=== PATIENT | female | born 1965 | race Caucasian/White ===

== ENCOUNTER → 2017-01-02 | Outpatient (CLI) | payer OTHER ==
[~2017-01-02] MED LIST: AMOX500C PO; AUGM875T27 PO; DOCU10CA PO; GLUC2.5T2 PO; GLYBURIDE METFORMIN PO; INSULANT SC; KEFL500C7 PO; LEVO25TA2 OR; LEVO25TA5 PO; LOPR50TA PO; MOTRIN PO; NOVOLOG100 MG/ML SC; PERC5TAB8 PO; PERCOCET PO; SENN8.6T5 PO; SERT25TA2 PO; VYTO10TA5 PO; kenalog EXT; levothyroxine PO
--- NOTE | 2017-01-02 18:57 | REP ---
MRI right shoulder without contrast: History: Right shoulder sprain in a fall a month ago. Increased pain and limited range of motion. Comparison radiographs of the humerus are from September 20, 2016. No other comparison images. Technique: Axial, oblique coronal and oblique sagittal imaging planes are utilized. T1 and T2-weighted scans were obtained in the usual fashion with without fat saturation. MRI findings: There is mild osteoarthritic hypertrophy of the acromioclavicular joint. The AC and glenohumeral joints are normally aligned. Cortical and medullary bone signal intensity are normal. There are some small subcortical cysts in the anterolateral aspect of the humeral head. This is a finding which may correlate with impingement. There is a moderate size subacromial subdeltoid bursal effusion visible on T2-weighted scans. There is heterogeneous increased signal intensity and some thickening in the distal supraspinatus tendon on oblique coronal T1-weighted images and oblique coronal T2-weighted images. A full-thickness partial tear is suspected in the distal supraspinatus at its insertion. No anterior or posterior labral tear is seen. The superior labrum appears intact. No glenohumeral effusion is seen. The infraspinatus, subscapularis tendons appear intact. The biceps tendon is in the bony bicipital groove and appears intact. Impression: Partial, full-thickness distal supraspinatus tear suspected. Subacromial subdeltoid bursal effusion. Tendonitis tendinosis change in the supraspinatus tendon. AC joint osteoarthritic hypertrophy. Signed by Moe Fernandes MD 01/02/2017 07:03 P
== END ==
LOC: M RAD 16:33
PROVIDERS: ATTEND Internal Medicine
DX: S43.401A Unspecified sprain of right shoulder joint, initial encounter (principal); W18.30XA Fall on same level, unspecified, initial encounter; Y92.009 Unspecified place in unspecified non-institutional (private) residence as the place of occurrence of the external cause

== ENCOUNTER 2017-06-16 13:00 | Outpatient (RCR) | payer OTHER ==
[~2017-06-16 13:00] MED LIST changes: -AUGM875T27 PO; +AUGM875T28 PO; +KEFL500C17 PO; -KEFL500C7 PO
== END 2017-06-18 | disposition home or self-care (01) ==
LOC: M PT 13:00
PROVIDERS: ATTEND Physician Assistant
DX: Z51.89 Encounter for other specified aftercare (principal); M54.2 Cervicalgia

== ENCOUNTER → 2017-07-08 | Outpatient (CLI) | payer OTHER ==
--- NOTE | 2017-07-08 17:33 | REP ---
MRI cervical spine without contrast: History: Cervical degenerative disc disorder with radiculopathy. Right neck and arm pain and numbness and tingling. No known injury. Comparison MRI cervical spine February 27, 2014. Technique: Sagittal and axial T1 and T2-weighted scans are acquired in the usual fashion with and without fat saturation. Sequences include spin echo, turbo spin-echo, and STIR imaging sequences. There is motion artifact on some of today's sequences. The patient is in severe pain. MRI findings: There is reversal of the normal cervical lordosis. Cortical and medullary bone signal intensity are normal. Vertebral body heights are preserved. Alignment is otherwise normal. There is decreased disc space height and signal intensity at C5-6 consistent with degenerative disc disease at this level. Mild degenerative disc changes are seen at C6-7. These findings are unchanged from the February 2014 prior study. Axial and sagittal images at C5-6 demonstrate a left paracentral C5-6 disc herniation, which displaces the cord dorsally and effaces the ventral and dorsal subarachnoid space. The ventral margin of the cord on the left side is flattened. This is felt to be unchanged however from the February 2014 prior study. There is minimal uncovertebral spurring bilaterally at this level. At C6-C7, there is moderate uncovertebral spurring on the left producing neural foraminal encroachment. This is unchanged as well from the 2013 prior study. At C7-T1, there is no significant abnormality. The more proximal cervical levels are unremarkable as well. Cervical cord is normal in course and signal intensity. Impression: 1. A moderate sized left paracentral disc protrusion at C5-6 is again seen producing mild central canal stenosis and flattening the ventral margin of the cord. 2. There is moderate left-sided uncovertebral spurring producing left-sided neural foraminal narrowing at C6-7. These findings are unchanged from the 2013 prior exam. Signed by Moe Fernandes MD 07/08/2017 06:41 P
== END ==
LOC: M RAD 16:09
PROVIDERS: ATTEND Physician Assistant
DX: M54.2 Cervicalgia (principal)

== ENCOUNTER 2018-07-05 14:38 | Emergency (ER) | payer OTHER ==
[2018-07-05 15:26] LABS: KETONE, URINE AUTO RFX NEGATIVE (NEGATIVE); MUCUS, URINE RFX SMALL (NEGATIVE); NITRITE, URINE AUTO RFX NEGATIVE (NEGATIVE); RBC, URINE AUTO RFX 0 /HPF (0-3); SPECIFIC GRAVITY UR AUTO RFX 1.033 (1.002-1.035); SQUAM EPITHELIAL CELL UR AURFX 3 /HPF (0-6); WBC, URINE AUTO RFX 2 /HPF (0-3)
[2018-07-05 15:49] LABS: LEUKOCYTE ESTERASE UR AUTO RFX TRACE (NEGATIVE)
[2018-07-05 19:11] LABS: BASO % 0.2 % (0.0-1.0); EOS # 0.6 10^3/uL (0.0-0.50); EOS % 6.4 % (0.0-3.0); HEMATOCRIT 42.1 % (36.0-47.0); HEMOGLOBIN 13.7 g/dl (12.0-15.5); IMMATURE GRANULOCYTE % 0.2 % (0-3.0); LYMPH # 2.5 10^3/uL (1.5-4.5); LYMPH % 28.3 % (24.0-44.0); MEAN CORPUSCULAR HEMOGLOBIN 29.5 pg (27.0-33.0); MEAN CORPUSCULAR HGB CONC 32.5 g/dl (32.0-36.5); MEAN CORPUSCULAR VOLUME 90.7 fl (80.0-96.0); MONO # 0.5 10^3/uL (0.0-0.8); MONO % 6.2 % (0.0-5.0); NEUTROPHILS # 5.1 10^3/uL (1.8-7.7); NEUTROPHILS % 58.7 % (36.0-66.0); PLATELET COUNT, AUTOMATED 192 10^3/uL (150-450); RED BLOOD COUNT 4.64 10^6/uL (4.00-5.40); RED CELL DISTRIBUTION WIDTH 12.2 % (11.5-14.5); WHITE BLOOD COUNT 8.7 10^3/uL (4.0-10.0)
[2018-07-05 19:36] LABS: ANION GAP 10 MEQ/L (8-16); BLOOD UREA NITROGEN 21 MG/DL (7-18); CALCIUM LEVEL 9.5 MG/DL (8.5-10.1); CARBON DIOXIDE LEVEL 30 MEQ/L (21-32); CHLORIDE LEVEL 103 MEQ/L (98-107); CREATININE FOR GFR 0.57 MG/DL (0.55-1.30); GLOMERULAR FILTRATION RATE > 60.0 (>51); GLUCOSE, FASTING 140 MG/DL (70-100); SODIUM LEVEL 143 MEQ/L (136-145)
== END 2018-07-05 20:12 | disposition home or self-care (01) ==
LOC: M ED 14:38
DX: M54.41 Lumbago with sciatica, right side (principal); E11.9 Type 2 diabetes mellitus without complications; I10 Essential (primary) hypertension; Z79.899 Other long term (current) drug therapy; F17.210 Nicotine dependence, cigarettes, uncomplicated
CPT/HCPCS: 80048

== ENCOUNTER 2019-05-08 22:00 | Emergency (ER) | payer OTHER ==
[~2019-05-08] VITALS: Ht 157.5 cm; Wt 63.6 kg
[~2019-05-08 22:00] MED LIST changes: +ALPR0.5T3 PO; +GABA-1171 PO; +HYDR-3719 PO; +ROBA500T PO
[2019-05-08 22:02] VITALS: BP 125/87
[2019-05-09] MEDS ORDERED: KETOROLAC 60 MG/2 ML VIAL (J1885) IM ONE (01:15)
== END 2019-05-09 01:34 | disposition home or self-care (01) ==
LOC: M ED 22:00
DX: M19.90 Unspecified osteoarthritis, unspecified site (principal); G89.29 Other chronic pain; F17.200 Nicotine dependence, unspecified, uncomplicated; Z79.899 Other long term (current) drug therapy; Z79.4 Long term (current) use of insulin
CPT/HCPCS: 96372; 99283; J1885

== ENCOUNTER → 2019-06-10 | Outpatient (CLI) | payer OTHER ==
--- NOTE | 2019-06-10 16:43 | REPVR ---
EXAM: MR Lumbar Spine Without Contrast. EXAM DATE/TIME: 06/10/2019 3:59 PM CLINICAL HISTORY: 54 years old, female; Low back pain; Additional info: Disc degeneration TECHNIQUE: Imaging protocol: Multiplanar magnetic resonance images of the lumbar spine without intravenous contrast. COMPARISON: MRI-Spine, L.S. without con 03/26/2016 4:37 PM FINDINGS: Vertebrae: There is no fracture. Vertebral height is maintained. No evidence of a marrow infiltrating lesion on STIR images. As Spinal cord: The conus and cauda equina are normal. L1-L2: Disc dehydration which was not present on the prior scan.Mild disc bulge. No central or foraminal stenosis. L2-L3: Disc dehydration which was not present on the prior scan.No significant disc bulge. There is facet hypertrophy and hypertrophy of the ligamentum flavum without central or foraminal stenosis. L3-L4: Disc dehydration which was present on the prior scan.Mild disc bulge. Facet and ligament hypertrophy. No central stenosis. There is mild foraminal stenosis. There is a right foraminal and 5 mm disc protrusion which compresses the exiting right L3 nerve root. This is progressive disease compared with the prior scan. L4-L5: Severe disc space narrowing with advanced degenerative changes of the endplates. Disc space narrowing has progressed since the previous scan. There is facet and ligament hypertrophy. There is no central stenosis. There is a large, 8 mm, a left paracentral disc extrusion markedly encroaching on the left lateral recess and neural foramen. This is superimposed on facet arthropathy with moderate bilateral foraminal stenosis. There is impingement of the exiting left L4 nerve root in the left foramen. There is impingement of the descending left L5 nerve root in the left lateral recess. This was not present on the prior scan. L5-S1: No significant disc bulge. There is facet arthropathy with moderate bilateral foraminal stenosis. Soft tissues: No paraspinous or intraspinal mass, hemorrhage or fluid collection. Other findings: There is multilevel disc dehydration. No disc edema. IMPRESSION: 1. No fracture. 2. Multilevel degenerative findings and disc disease are detailed above. Of particular note are a left paracentral L4-L5 and left foraminal L3-L4 disc herniations. Electronically signed by: Mihir Jeong On 06/10/2019 16:43:11 PM
--- NOTE | 2019-06-10 16:52 | REPVR ---
EXAM: MR Thoracic Spine Without Contrast EXAM DATE/TIME: 06/10/2019 3:59 PM CLINICAL HISTORY: 54 years old, female; Pain in thoracic spine; Without myelpathy or radiculopathy; Additional info: Disc degeneration TECHNIQUE: Imaging protocol: Multiplanar magnetic resonance images of the thoracic spine without intravenous contrast. COMPARISON: MRI-Spine,Thoracic without con 12/22/2014 1:03 PM FINDINGS: Vertebrae: There there reason maintained their height and alignment. Spinal cord: The thoracic spinal cord is normal. C5-C6: At the superior edge of the scan spondylosis and a disc protrusion are present at C5-C6 with impingement of the ventral aspect of the spinal cord. This is incompletely evaluated in the absence of axial images. T1-T2: No significant disc disease. No significant spinal stenosis. T2-T3: No significant disc disease. No significant spinal stenosis. T3-T4: No significant disc disease. No significant spinal stenosis. T4-T5: There is a 2 mm left paracentral disc protrusion and a separate similar sized right foraminal disc protrusion. Slightly larger than on prior scan. T5-T6: Advanced disc space narrowing with degenerative changes of the endplates. There is a 4 mm left paracentral disc protrusion which encroaches on the left lateral recess and left neural foramen. This is superimposed on facet arthropathy with mild bilateral foraminal stenosis. No central stenosis. No change from prior scan. T6-T7: Advanced disc space narrowing degenerative changes of the endplates. There is a 4 mm bilobed disc protrusion encroaching on the lateral recesses. No central stenosis. No change from prior scan. T7-T8: Severe disc space narrowing. There 5 mm left paracentral disc herniation encroaching on the left lateral recess and effacing the subarachnoid space ventral to the cord. There is slight impingement of the left ventral cord. This has slightly decreased in size compared with the prior scan. There was cephalad extrusion on the previous scan which has decreased T8-T9: Severe disc space narrowing. 4 mm broad-based disc protrusion partially effacing the ventral subarachnoid space. No change from prior scan. T9-T10: Advanced disc space narrowing. 3 mm disc bulge partially effacing the ventral subarachnoid space. Asymmetric right foraminal stenosis due to facet arthropathy. No central stenosis. No change T10-T11: T10-11: 3 millimeter central to right paracentral disc protrusion. Facet and ligament hypertrophy. Mild central stenosis. Mild foraminal stenosis. No change T11-T12: 2 mm central disc protrusion slightly indenting the thecal sac. Mild left foraminal stenosis. No change from prior scan. T12-L1: Mild disc bulge. No central or foraminal stenosis. Thyroid: There is an 8mm nodule in the right lobe of the thyroid. No further imaging required. Soft tissues: There is no paraspinous or intraspinal mass, hemorrhage or fluid collection. IMPRESSION: 1. No fracture. 2. Multilevel disc disease is detailed above. COMMENT: In patients aged 35 years and older with an incidental thyroid nodule equal to or greater than 1.[address], MRI or extrathyroidal US, further evaluation with dedicated thyroid US is recommended for patients with normal life expectancy and without comorbidities. For smaller nodules without suspicious features, no further evaluation or follow up is recommended. Electronically signed by: Mihir Jeong On 06/10/2019 16:52:26 PM
== END ==
LOC: M PLARAD 14:14
PROVIDERS: ATTEND Internal Medicine
DX: M51.34 Other intervertebral disc degeneration, thoracic region (principal); M51.36 Other intervertebral disc degeneration, lumbar region; R93.7 Abnormal findings on diagnostic imaging of other parts of musculoskeletal system

== ENCOUNTER 2020-01-17 05:14 | Emergency (ER) | payer OTHER ==
[2020-01-17] MEDS ORDERED: EPINEPHrine 1MG/10ML SYRINGE 1.5IN ONE (05:15)
== END 2020-01-17 06:41 | disposition expired ==
LOC: M ED 05:14 → EDBD 05:14 → M ED 06:41
DX: I46.9 Cardiac arrest, cause unspecified (principal); I11.0 Hypertensive heart disease with heart failure; N10 Acute pyelonephritis; E11.9 Type 2 diabetes mellitus without complications; E03.9 Hypothyroidism, unspecified; Z79.899 Other long term (current) drug therapy